=== PATIENT | male | born 1990 | race Asian ===

== ENCOUNTER 2018-08-23 09:08 | Emergency (ER) | payer SELFPAY ==
[2018-08-23] MEDS ORDERED: Diphtheria,Pertussis(Acell),Tetanus Vaccine 0.5 ML SDV inactive IM ONE (09:36)
--- NOTE | 2018-08-23 09:42 | EDM.PDOC ---
ED HPI GENERAL MEDICAL PROBLEM - General Time Seen by Provider: 08/23/18 09:15 Source of Information: Reports: Patient History Limitations: Reports: No Limitations - History of Present Illness INITIAL COMMENTS - FREE TEXT/NARRATIVE: Pt is here on fishing trip from [place], [place]. he claims he was sorting through the fish hook and accidentally got fish hook embedded into his left thumb and index finger. not able to move the left thumb and index fingers as they are stuck. Minimal pain. No tingling of numbness in the finger. Pt is not sure of his last tetanus shot. No other complaints. Onset: Today Onset Date: 08/23/18 Onset Time: 08:00 Severity: Mild Improves with: Reports: None Worsens with: Reports: None Associated Symptoms: Denies: Confusion, Chest Pain, Cough, Fever/Chills, Nausea/ Vomiting, Rash, Seizure, Shortness of Breath, Syncope, Weakness ED ROS GENERAL - Review of Systems Review Of Systems: See Below Constitutional: Denies: Fever, Chills HEENT: Denies: Ear Pain, Rhinitis, Throat Pain Respiratory: Denies: Cough, Sputum Cardiovascular: Denies: Chest Pain, Lightheadedness GI/Abdominal: Denies: Abdominal Pain, Nausea, Vomiting : Denies: Dysuria, Flank Pain Musculoskeletal: Denies: Joint Pain, Joint Swelling Skin: Reports: Bruising. Denies: Pruritis, Rash ED EXAM, GENERAL - Physical Exam Exam: See Below Exam Limited By: No Limitations General Appearance: Alert, WD/WN, No Apparent Distress Eye Exam: Bilateral Eye: EOMI, PERRL Ears: Normal External Exam, Normal Canal, Hearing Grossly Normal, Normal TMs Ear Exam: Bilateral Ear: Auricle Normal, Canal Normal, TM normal Nose: Normal Inspection, Normal Mucosa, No Blood Throat/Mouth: Normal Inspection, Normal Lips, Normal Teeth, Normal Gums, Normal Oropharynx, Normal Voice, No Airway Compromise Head: Atraumatic, Normocephalic Neck: Normal Inspection, Supple, Non-Tender, Full Range of Motion Respiratory/Chest: No Respiratory Distress, Lungs Clear, Normal Breath Sounds, No Accessory Muscle Use, Chest Non-Tender Cardiovascular: Normal Peripheral Pulses, Regular Rate, Rhythm, No Edema, No Gallop, No JVD, No Murmur, No Rub Extremities: Normal Inspection, Normal Range of Motion, Non-Tender, Normal Capillary Refill, No Pedal Edema Skin Exam: Warm, Intact, Other (Left Hand: The lia is embedded one each into the tip of the left thumb and the middle phalync of the index finger. no active bleeding. Normal neurovascular exam of the fingers.) Course - Vital Signs Text/Narrative:: The area around the fish hook as cleaned with alcohol . The skin around the lia was infiltrated with 2% lido. the lia removed using needle technique. pt tolerated the procedure well. Simple dressing applied. advised to keep the area dry for 24 hrs. Infection precautions discussed. He did receive Tdap today. Followup with his PCP next week. - Orders/Labs/Meds Orders: Active Orders 24 hr Category Date Time Status Vaccines to be Administered [RC] PER UNIT ROUTINE Care 08/23/18 09:36 Ordered Diphth,Pertuss(Acell),Tet Vac [Boostrix] Med 08/23/18 09:36 Once 0.5 ml IM .ONCE ONE Departure - Departure Time of Disposition: 09:35 Disposition: Home, Self-Care 01 Condition: Fair Clinical Impression: Fish hook injury of hand - Discharge Information *PRESCRIPTION DRUG MONITORING PROGRAM REVIEWED*: Not Applicable *COPY OF PRESCRIPTION DRUG MONITORING REPORT IN PATIENT DANA: Not Applicable Referrals: PCP,None [Primary Care Provider] - - Problem List & Annotations (1) Fish hook injury of hand SNOMED Code(s): 181567101 Code(s): S69.90XA - UNSP INJURY OF UNSP WRIST, HAND AND FINGER(S), INIT ENCNTR Status: Acute Current Visit: Yes - Problem List Review Problem List Initiated/Reviewed/Updated: Yes - My Orders Last 24 Hours: My Active Orders 08/23/18 09:36 Vaccines to be Administered [RC] PER UNIT ROUTINE Diphth,Pertuss(Acell),Tet Vac [Boostrix] 0.5 ml IM .ONCE ONE - Assessment/Plan Last 24 Hours: My Active Orders 08/23/18 09:36 Vaccines to be Administered [RC] PER UNIT ROUTINE Diphth,Pertuss(Acell),Tet Vac [Boostrix] 0.5 ml IM .ONCE ONE Assessment:: left hand fish hook Plan: The area around the fish hook as cleaned with alcohol . The skin around the lai was infiltrated with 2% lido. the lia removed using needle technique. pt tolerated the procedure well. Simple dressing applied. advised to keep the area dry for 24 hrs. Infection precautions discussed. He did receive Tdap today. Followup with his PCP next week.
== END 2018-08-23 09:30 | disposition home or self-care (01) ==
LOC: LB.ED 09:08
DX: S60.352A Superficial foreign body of left thumb, initial encounter (principal); W45.8XXA Other foreign body or object entering through skin, initial encounter; Z23 Encounter for immunization
CPT/HCPCS: 90471; 90715; 99283-25